=== PATIENT | female | born 1940 | race Caucasian/White ===

== ENCOUNTER → 2018-05-06 | Outpatient (CLI) | payer MEDICARE ==
[~2018-05-06] MED LIST: FURO-45 PO; FURO-47 PO; LISI2.5T60 PO; POTA-23 PO; POTA25TA6 PO
--- NOTE | 2018-05-07 14:57 | RADIOLOGY IMAGING REPORT ---
FACILITY: [facility] PATIENT NAME: PAULETTE ESCOBEDO : [id number] MR: [id number] V: [id number] EXAM DATE: [id number] ORDERING PHYSICIAN: MANUEL CHEN TECHNOLOGIST: Lissa Philippe PROCEDURE:BILATERAL DIGITAL SCREENING MAMMOGRAM WITH CAD ASSISTED INTERPRETATION & 3D TOMOSYNTHESIS COMPARISON:Prior mammogram 04/30/17. INDICATIONS:screening FINDINGS: Breast tissue demonstrates scattered fibroglandular tissue elements. In the Right breast, upper outer quadrant there is a biopsy clip. This is unchanged from the past study. There is no suspicious mass, calcification, or architectural distortion. DIAGNOSTIC CATEGORY 2--BENIGN FINDING. RECOMMENDATIONS: ROUTINE MAMMOGRAM AND CLINICAL EVALUATION. IMPRESSION: BIRADS 2: Benign finding. No mammographic evidence for malignancy. Dictated by: Chilo Raza M.D. on 05/07/2018 at 11:22 Transcribed by: MARISSA on 05/07/2018 at 11:47 Approved by: Chilo Raza M.D. on 05/07/2018 at 14:57 [facility]
== END ==
LOC: MAMO 01:55
PROVIDERS: ATTEND Family Medicine
DX: Z12.31 Encounter for screening mammogram for malignant neoplasm of breast (principal)
CPT/HCPCS: 77063; 77067

== ENCOUNTER → 2018-08-18 | Outpatient (CLI) | payer MEDICARE ==
[~2018-08-18] MED LIST changes: +MIRT7.5T2 PO; +TRAZ50TA34 PO
--- NOTE | 2018-08-18 14:30 | RADIOLOGY IMAGING REPORT ---
FACILITY: [facility] - [place], [place] PATIENT NAME: Estela Salas : 1940 MR: [id number] V: [id number] EXAM DATE: ORDERING PHYSICIAN: MANUEL CHEN TECHNOLOGIST: Location: [facility] Patient: Estela Salas : 1940 Visit/Account:[id number] Date of Sevice: 08/18/2018 DEXA Scan Clinical history: Osteopenia. Comparison: DEXA scan from 07/29/2006. LUMBAR SPINE: The bone mineral density (BMD) measured from L1-L4 correlates with a Z-score 1.6 and a T-score of 0. 2 which is Normal as defined by the World Health Organization. The corresponding risk of fracture in the lumbar spine is Not increased compared with a young adult reference population. This value has increased by 5.7 % since the prior study. More than 5% change is considered significant. HIP: Bone mineral density (BMD) measured in the Left femoral neck region correlates with a Z-score 0.8 and a T-score of -1.0 which is osteopenia as defined by the World Health Organization. The correspond ing risk of fracture in the hip is increased compared with a young adult reference population. The to omkar hip value has decreased by 9.5 % since the prior study. More than 5% change is considered signif icant. Bone mineral density (BMD) measured in the Femoral Neck region measures 0.901 g/cm2. IMPRESSION: 1. Lumbar spine: Normal. There has been increased in the bone mineral density since the previous ex am. 2. Left femoral neck region: Osteopenia. There has been decrease in the bone mineral density of the total hip since the previous exam. 3. Femoral Neck: Bone Mineral Density is 0.901 g/cm2 The next DEXA scan of this patient should include the following sites: L1-L4 and the left hip. FRAX? WHO Fracture Risk Assessment Tool link: <http://www.shef.ac.uk/FRAX/tool.jsp?locationValue=9> PLEASE NOTE: 1) The World Health Organization defines low BMD as follows: T-score Normal > -1 Osteopenia < -1 and > -2.5 Osteoporosis < -2.5 without fractures Established osteoporosis < -2.5 with fractures 2) In general, you may wish to consider: Diagnosis Treatment Follow-up DEXA Normal BMD Prevention 2-3 years Osteopenia Prevention/therapy 1-2 years Osteoporosis Therapy Yearly 3) Fracture risk estimated from the T-score is more accurate for vertebral fractures (often spontane ous) than for hip fractures. Report Dictated By: Chilo Raza at 08/18/2018 2:24 PM Report E-Signed By: Chilo Raza at 08/18/2018 2:26 PM WSN:[email or web address]
== END ==
LOC: RAD 00:44
PROVIDERS: ATTEND Family Medicine
DX: M85.88 Other specified disorders of bone density and structure, other site (principal)
CPT/HCPCS: 77080

== ENCOUNTER → 2019-05-24 | Outpatient (CLI) | payer MEDICARE ==
[~2019-05-24] MED LIST changes: +BUSP7.5T7 PO; +CYAN100088 PO; +CYAN250013; -TRAZ50TA34 PO; +TRAZ50TA52 PO
--- NOTE | 2019-05-25 10:47 | RADIOLOGY IMAGING REPORT ---
FACILITY: [facility] PATIENT NAME: PAULETTE ESCOBEDO : [id number] MR: [id number] V: [id number] EXAM DATE: [id number] ORDERING PHYSICIAN: MANUEL CHEN TECHNOLOGIST: Keyonna Flores PROCEDURE: BILATERAL DIGITAL SCREENING MAMMOGRAM WITH CAD ASSISTED INTERPRETATION & 3D TOMOSYNTHESIS REASON FOR STUDY: Screening. COMPARISON: 05/06/18, with priors to 10/09/2012. VIEWS OBTAINED: 2D & 3D full field CC & MLO projections. BREAST DENSITY: The breasts have scattered fibroglandular parenchymal densities. MAMMOGRAM FINDINGS: The clip from previous benign core biopsy middle depth in the upper outer aspect of the Right breast. Small indistinct asymmetry in superior Left breast in the MLO view is unchanged. No new mammographic findings concerning for malignancy. IMPRESSION: BIRADS 2: Benign finding. DIAGNOSTIC CATEGORY 2--BENIGN FINDING. RECOMMENDATIONS: ROUTINE MAMMOGRAM AND CLINICAL EVALUATION IN 1YR. Dictated by: Chilo Henson on 05/25/2019 at 9:07 Transcribed by: MARISSA on 05/25/2019 at 10:14 Approved by: Chilo Henson on 05/25/2019 at 10:43 [facility]
== END ==
LOC: MAMO 01:02
PROVIDERS: ATTEND Family Medicine
DX: Z12.31 Encounter for screening mammogram for malignant neoplasm of breast (principal); Z80.3 Family history of malignant neoplasm of breast
CPT/HCPCS: 77063; 77067